=== PATIENT | female | born 1990 | race African-American/Black ===

== ENCOUNTER 2018-01-08 08:30 | Emergency (ER) | payer MEDICAID ==
[~2018-01-08] VITALS: Ht 167.6 cm; Wt 102.5 kg
[~2018-01-08 08:30] MED LIST: NORPTMEDS CO; PREN-96 PO
[2018-01-08 09:29] LABS: Basophils # (auto) 0 uL; Eosinophils # (auto) 0.2 uL; Hemoglobin 12.3 g/dL (12.2-16.2); Lymphocytes # (auto) 2.9 uL; Monocytes # (auto) 0.5 uL
[2018-01-08] MEDS ORDERED: PROMETHAZINE HCL 25 MG/ML 1ML IV ONE (09:30)
[2018-01-08] MEDS ORDERED: SODIUM CHLORIDE 0.9% 1,000 ML IV ONE (09:30)
[2018-01-08] MEDS ORDERED: MORPHINE SULFATE 4 MG/ML SYR/VIAL IV ONE (09:30)
[2018-01-08 09:31] LABS: Basophils % (auto) 0.5 % (0.0-2.0); Eosinophils % (auto) 1.9 % (0.0-7.0); Hematocrit 37.9 % (36.0-46.0); Lymphocytes % (auto) 29.2 % (10.0-50.0); Mean Corpuscular Hgb Conc. 32.4 g/dL (32.0-36.0); Mean Corpuscular Volume 80.1 fL (80.0-100.0); Monocytes % (auto) 4.7 % (0.0-12.0); Neutrophils # (auto) 6.3 uL; Neutrophils % (auto) 63.7 % (37.0-80.0); Nucleated Red Blood Cells % 0.1 %; Platelet Count (auto) 347 10^3/uL (140-450); Red Blood Cells 4.73 10^6/uL (4.0-5.20); Red Cell Distribution Width 16.3 % (11.8-14.3); White Blood Cell 9.9 10^3/uL (4.4-10.8)
[2018-01-08 09:46] LABS: Urine Bacteria NONE SEEN /hpf (None Seen); Urine Blood 2+ /uL (Negative); Urine Mucus FEW (None Seen); Urine Specific Gravity 1.028 (1.001-1.035); Urine WBC 33 /hpf (0 - 5)
[2018-01-08 09:50] LABS: Albumin 3.6 g/dL (3.4-5.0); Bilirubin, Total 0.4 mg/dL (0.2-1.0); Potassium 3.5 mmol/L (3.5-5.1); Total Protein 8.7 g/dL (6.4-8.2)
[2018-01-08 10:42] LABS: Amylase 63 U/L (25-115); Lipase 132 U/L (73-393)
[2018-01-08] MEDS ORDERED: cefTRIAXone 1GM/10ml IVPUSH 10 ML IV ONE (10:45)
[2018-01-08 12:00] VITALS: BP 104/62
== END 2018-01-08 13:18 | disposition home or self-care (01) ==
LOC: ER 08:30
DX: N39.0 Urinary tract infection, site not specified (principal); Z79.899 Other long term (current) drug therapy
CPT/HCPCS: 36415; 74176; 80053; 81001; 81025; 82150; 83690; 85025; 96361; 96374; 96375; 99285; J2270; J2550; J7030

== ENCOUNTER 2019-04-03 03:02 | Emergency (ER) | payer MEDICAID ==
[~2019-04-03] VITALS: Ht 167.6 cm; Wt 84.4 kg
[2019-04-03 03:41] VITALS: BP 126/59
[2019-04-03] MEDS ORDERED: IBUPROFEN 800 MG TAB PO ONE (05:00)
== END 2019-04-03 05:41 | disposition home or self-care (01) ==
LOC: ER 03:03
DX: S16.1XXA Strain of muscle, fascia and tendon at neck level, initial encounter (principal); S00.03XA Contusion of scalp, initial encounter; R10.30 Lower abdominal pain, unspecified; Y08.89XA Assault by other specified means, initial encounter; Y93.89 Activity, other specified; Y99.8 Other external cause status; Y92.89 Other specified places as the place of occurrence of the external cause

== ENCOUNTER 2023-02-02 17:29 | Emergency (ER) | payer MEDICAID ==
[~2023-02-02] VITALS: Ht 167.6 cm; Wt 144.0 kg
[~2023-02-02 17:29] MED LIST changes: +ACET-1158 PO; +AMOX-277 PO; +PRED20TA2 PO
[2023-02-02] MEDS ORDERED: ACET-1158 PO (20:52)
[2023-02-02] MEDS ORDERED: AMOX-277 PO (20:52)
[2023-02-02] MEDS ORDERED: PRED20TA2 PO (20:52)
[2023-02-02] MEDS ORDERED: cefTRIAXone SOD 1,000 MG VL IM ONE (21:00)
[2023-02-02] MEDS ORDERED: methylPREDNISolone SOD SUCC 125 MG/2 ML VL IM ONE (21:00)
[2023-02-02] MEDS ORDERED: LIDOCAINE 1% HCL (LOCAL ANESTH.) INJ 20ML MDV ID ONE (21:15)
[2023-02-02 21:22] VITALS: BP 100/63
== END 2023-02-02 21:55 | disposition home or self-care (01) ==
LOC: ER 17:29
DX: U07.1 COVID-19 (principal); J06.9 Acute upper respiratory infection, unspecified
CPT/HCPCS: 36415; 71045; 87426; 87804; 96372; 99284; J0696; J2001; J2930